=== PATIENT | female | born 1980 | race Hispanic/Latino ===

== ENCOUNTER 2024-05-02 20:34 | Emergency (ER) | payer BC ==
[2024-05-02 20:56] LABS: Bilirubin Neg (Negative); Blood, Urine 25 (Negative); Clarity Clear (Clear); Glucose, Urine (Dipstick) Normal (Negative); Ketone, Urine Negative (Negative); Leukocyte Negative (Negative); Nitrite Negative (Negative); Protein, Urine (Dipstick) 15 mg/dl (Neg-Trace); Urobilinogen Normal mg/dL (Less than 2)
[2024-05-02 21:15] LABS: Bacteria/HPF Rare-Few HPF (None Seen); CAUTI Indications for Culture Dysuria,urgency,freq; RBC/HPF 0-3 HPF (0-3); WBC/HPF 0-3 HPF (0-3)
[2024-05-02 21:17] LABS: Urine Culture Reflex No No
== END 2024-05-02 22:17 | disposition home or self-care (01) ==
LOC: CSHERS 20:34
DX: M54.50 Low back pain, unspecified (principal)
CPT/HCPCS: 74176; 81001; 93005